=== PATIENT | male | born 1980 | race Two or more races ===

== ENCOUNTER 2020-07-25 23:34 | Emergency (ER) | payer OTHER ==
[~2020-07-25] VITALS: Ht 170.2 cm; Wt 69.9 kg
[2020-07-26] MEDS ORDERED: VISTARIL50 MG PO (06:27)
== END 2020-07-26 | disposition home or self-care (01) ==
LOC: ER 23:34
DX: T40.5X1A Poisoning by cocaine, accidental (unintentional), initial encounter (principal); R00.0 Tachycardia, unspecified; Y92.89 Other specified places as the place of occurrence of the external cause